=== PATIENT | male | born 1975 | race Caucasian/White ===

== ENCOUNTER 2016-07-26 22:44 | Emergency (ER) | payer OTHER ==
[~2016-07-26 22:44] MED LIST: DIABETES MED; LISINOPRIL5 MG PO; PRINIVIL20 M1 PO; TYLENOL #3 PO
== END 2016-07-27 00:48 | disposition home or self-care (01) ==
LOC: SED 22:44
DX: R51 Headache (principal); E11.9 Type 2 diabetes mellitus without complications; I10 Essential (primary) hypertension; F17.200 Nicotine dependence, unspecified, uncomplicated
CPT/HCPCS: 36415; 96361; 96374; 96375; 99284; J1200; J1885; J2765

== ENCOUNTER 2016-12-12 14:31 | Emergency (ER) | payer OTHER ==
[~2016-12-12] VITALS: Ht 182.9 cm; Wt 102.0 kg
--- NOTE | ~2016-12-12 | CR229 ---
[facility]. [facility] A Service of [facility] & [facility] RADIOLOGY TEXT RESULTS PATIENT: DOLORES LOPEZ LOCATION: SED : 71 UNIT #: [id number] AGE: [address]: Cheyanne Cortez SEX: M ORDER DR: [id number] [address] [address] [id number] E MR#: [id number] Acc #: [id number] NAME: DOLORES LOPEZ : 1975 SEX: M STUDY DATE/TIME: 12/12/2016 14:54 UNIT: SED ROOM: STUDY DESCRIPTION: CR Shoulder Min 2 View Lt Attending Physician: Cheyanne Cortez Pa-C Ordering Physician: Cheyanne Cortez Pa-C Primary Care Physician: [facility] MEDICAL IMAGING REPORT This report is preliminary unless electronic signature is present. EXAM Left shoulder 12/12/2016 INDICATION Shoulder pain for 5-7 days after moving stuff. FINDINGS Three views of the left shoulder were obtained. There is no fracture or dislocation. There is no AC joint separation. There is some glenohumeral arthropathy with spur formation noted. IMPRESSION Glenohumeral arthropathy. No acute findings in the shoulder. Dictated by... Orville Barrow Jr., M.D. THIS IS AN ELECTRONICALLY VERIFIED REPORT Orville Barrow Jr., M.D. at 12/13/2016 1:54 PM STEPHY/vinayak TD: 12/13/2016 09:22 JOB #: [id number] MEDICAL IMAGING REPORT Page 1 of 1
== END 2016-12-12 15:59 | disposition home or self-care (01) ==
LOC: SED 14:31
DX: S46.912A Strain of unspecified muscle, fascia and tendon at shoulder and upper arm level, left arm, initial encounter (principal); F17.200 Nicotine dependence, unspecified, uncomplicated; I10 Essential (primary) hypertension; E11.9 Type 2 diabetes mellitus without complications; X50.0XXA Overexertion from strenuous movement or load, initial encounter; Y92.009 Unspecified place in unspecified non-institutional (private) residence as the place of occurrence of the external cause
CPT/HCPCS: 73030; 99283